=== PATIENT | male | born 1940 | race Caucasian/White ===

== ENCOUNTER → 2018-11-27 08:46 | Outpatient (CLI) | payer MEDICARE, SELFPAY ==
--- NOTE | 2018-11-27 08:52 | MR_ITS ---
MR abdomen wo/w con INDICATION: Abdominal pain recurrent episodes of diverticulitis approximately every [address] showed inflammation and infection in colon. Also small cystic MASS AT PANCREAS, LIVER AND RENAL CYSTIC MASS, DIVERTICULITIS OF SIGMOID COLO ORDERING PHYSICIAN: Chao Randall MD PATIENT AGE: 78 years COMPARISON studies:: CT abdomen & pelvis- November 20, 2018 [facility] CT abdomen & pelvis-from [facility] September 2017 TECHNIQUE: Pre and postcontrast imaging of the abdomen Precontrast MR images: Multisequence MR imaging in the axial and coronal planes performed. Numerous sequential Postcontrast imaging performed following IV injection 15 mL ProHance.. FINDINGS: Small hiatal hernia noted LIVER:. Benign-appearing Cystic areas in the liver.: No abnormal enhancement at these or other cysts. There are 2 more prominent cyst observed with some additional very tiny additional cysts at left lobe: ... Stable 18 mm cyst, superior Right lobe of liver just beneath the dome of liver. ... Most prominent is the slightly lobular cyst area superior Left lobe liver-measuring up to 2.8 cm maximally x 2.3 cm. This stable since CT dating back to 2017. ... At least 2 or3 additional tiny satellite cyst adjacent to this larger cyst. Most notable are the large 2 tiny cyst on coronal image 9 with these small cyst measuring 6 and 7 mm.... These are seen just along the superior margin left lobe liver. These match tiny CT low-density areas/cyst noted on recent [address] scan. They were initially seen in 2017 but are very slightly more evident on recent studies versus at exam... ... RIGHT KIDNEY Stable nearly 2 cm cyst appearing area at mid right kidney. Stable since 2017 CT Left Kidney. No significant findings. PANCREAS:. Small cyst near lung the posterior aspect of the tail the pancreas measuring less than 8 mm size by MR.. This is been is been present since 2017 with only little if any progression.... No abnormal enhancement here postcontrast studies No pancreatic ductal dilatation. . SPLEEN: appears normal. Normal size Bowel. Moderate to generous stool the right colon. No obvious inflammatory changes at the visualized portions of the superior located small bowel. Upper portions of the visualized colon and small bowel here at the abdomen unremarkable. Pelvis is not imaged. IMPRESSION: 1.. Benign appearing Findings compatible with the recent outside CT report & images.. 2. Liver. Benign-appearing hepatic cysts, with no prominent change since 2017. Two Moderate size benign appearing cyst, with a few additional very tiny cyst left lobe 3. Pancreas: Tiny less than 8 mm cyst tail of pancreas. No significant change 2017 CT 4.. Right kidney.. Benign-appearing right renal cyst measuring up to 2 cm.. No significant change 2017 CT 5. No abnormal areas of enhancement. No evident inflammatory changes 6. Small sliding hiatal hernia instantly noted.
--- NOTE | 2018-11-27 10:19 | HMH.ITSHM ---
Current Home Medications as stated by this patient Don V Green or client care representative. []AMLODIPINE 5MG LISINOPRIL TOPROL LIPITOR METRONIDAZOLE CIPROFLOXACAN DICYCLOMINE
== END ==
PROVIDERS: PCP Family Medicine; Visit Provider Internal Medicine Gastroenterology
DX: K57.32 Diverticulitis of large intestine without perforation or abscess without bleeding (principal); R19.09 Other intra-abdominal and pelvic swelling, mass and lump; R16.0 Hepatomegaly, not elsewhere classified
CPT/HCPCS: 74183; A9576